=== PATIENT | female | born 1980 | race Caucasian/White ===

== ENCOUNTER 2017-12-21 09:51 | Emergency (ER) | payer MEDICARE, OTHER, MEDICAID, SELFPAY ==
[2017-12-21 10:01] VITALS: BP 113/73; PULSE 65; RESP 16; O2SAT 100; BMI 22.3
[2017-12-21 10:02] VITALS: BP 116/76; PULSE 60; RESP 18; O2SAT 98
--- NOTE | 2017-12-21 10:27 | DI.CT.S_ITS ---
PROCEDURE: CT HEAD/BRAIN WO CON INDICATIONS: recurrent episodes of syncope TECHNIQUE: Noncontrast 4.5 mm thick angled axial sections acquired from the foramen magnum to the vertex, with coronal and sagittal reformats. For radiation dose reduction, the following was used: automated exposure control, adjustment of mA and/or kV according to patient size. COMPARISON: None. FINDINGS: Image quality: Limited by beam hardening artifact related to metallic appearing implants. CSF spaces: Basal cisterns are patent. No extra-axial fluid collections. Ventricles are normal in size and shape. Brain: No midline shift. No intracranial masses or hemorrhage. Boone-white matter interface is normal. Skull and face: Calvarium and visualized facial bones are intact, without suspicious lesions. Partially calcified soft tissue density material noted in the left external auditory canal. Sinuses: Visualized sinuses and mastoids are clear. IMPRESSION: 1. No acute intracranial disease process. 2. Partially calcified soft tissue density lesion in the left external auditory canal which may represent inspissated wax versus neoplastic process. Recommend correlation with direct visualization. Dictated by: Merry Howard MD, PhD on 12/21/2017 at 10:36 Approved by: Merry Howard MD, PhD on 12/21/2017 at 10:39
[2017-12-21 10:29] LABS: Add Manual Diff / Slide Review NO; Basophils Percent Auto 0.9 % (0-2); Eosinophils Percent Auto 2.8 % (2-4); Hematocrit 40.8 % (36-46); Hemoglobin 14.1 g/dL (12.0-16.0); Mean Corpuscular HGB Conc 34.6 % (30-36); Mean Corpuscular Hemoglobin 34.3 PG (26-34); Mean Corpuscular Volume 99.2 fL (80-100); Monocytes Percent Auto 5.9 % (3-14); Neutrophils Absolute Auto 2000 /uL (3000-5900); Neutrophils Percent Auto 59.4 % (50-75); Platelet Count 223 X10^3/uL (150-400); Red Blood Cell Count 4.11 X10^6/uL (4.0-5.2); Red Cell Distribution Width 12.6 % (11.6-14.8); White Blood Cell Count 3.3 X10^3/uL (4.5-11.0)
[2017-12-21] MEDS: SODIUM CHLORIDE 0.9% 1,000 ML 1000 ML IV (10:29)
[2017-12-21 10:34] LABS: Alanine Aminotransferase 36 IU/L (9-52); Albumin 4.1 g/dL (3.5-5.0); Albumin Globulin Ratio 1.5 (1.0-2.8); Alkaline Phosphatase 54 U/L (38-126); Aspartate Aminotransferase 30 IU/L (14-36); BUN Creatinine Ratio 28.6 (6-22); Bilirubin Total 0.5 mg/dL (0.2-1.3); Blood Urea Nitrogen 20 mg/dL (7-17); Calcium 8.9 mg/dL (8.4-10.2); Carbon Dioxide 33 mmol/L (22-32); Chloride 99 mmol/L (98-107); Estimated Glomerular Filt Rate > 60.0 mL/min (>60); Globulin 2.8 g/dL (1.7-4.1); Glucose 110 mg/dL (70-100); HEMOLYSIS < 15 (0-50); Sodium 139 mmol/L (137-145); Total Protein 6.9 g/dL (6.3-8.2)
[2017-12-21 10:36] VITALS: BP 117/78; PULSE 62; RESP 14; O2SAT 98
--- NOTE | 2017-12-21 11:15 | ED_ITS ---
HPI - Syncope General Chief Complaint: Syncope Stated Complaint: 'PASSING OUT AGAIN' Time Seen by Provider: 12/21/17 10:03 Source: patient and family Mode of arrival: wheelchair Limitations: no limitations History of Present Illness HPI narrative: The patient is a 37-year-old Down's female who presents after syncopal episode. She had 2 syncopal episodes this morning there 5 min apart. She was going to the restroom when she got very dizzy lightheaded and diaphoretic. Mom says that she passed out briefly for just a couple of seconds. She was lowered to the ground. She sat up 5 min later passed out again. She has had syncopal episodes in the past her last 1 was in October 2016. Previously she had a syncopal episode in April and now has a loop recorder implanted. Patient is awake and alert and says that she is hungry. She has no other complaints no longer diaphoretic. MD complaint: almost passed out Related Data Home Medications Medication Instructions Recorded Confirmed coQ10 (liposomal ubiquinol) 10 ml PO DAILY #0 10/23/16 12/21/17 levothyroxine [Synthroid] 0.05 mg PO QDAY #0 10/23/16 12/21/17 montelukast [Singulair] 10 mg PO BEDTIME #0 10/23/16 12/21/17 multivitamin 1 tab PO QDAY #0 10/23/16 12/21/17 omega 2-xuz-yyv-fish oil [Fish Oil] 1 cap PO BEDTIME #0 10/23/16 12/21/17 ranitidine HCl 1 tab PO BEDTIME #0 10/23/16 12/21/17 Equate/Allergy 1 tab PO DAILY 12/21/17 12/21/17 L-Carnitine 1 tab PO DAILY 12/21/17 12/21/17 Potassium 99mg/Mag Cit 70mg 1 tab PO BEDTIME 12/21/17 12/21/17 Quercentinase 1 dose PO DAILY 12/21/17 12/21/17 aspirin 81 mg PO DAILY 12/21/17 12/21/17 epinephrine [EpiPen 2-Henry] 1 dose IM PRN PRN 12/21/17 12/21/17 ipratropium bromide 1 - 2 spray INTRANASAL DAILY 12/21/17 12/21/17 ofloxacin 1 drp OTIC (EAR) DIRECTED 12/21/17 12/21/17 red yeast rice 600 mg PO BEDTIME 12/21/17 12/21/17 Allergies Allergy/AdvReac Type Severity Reaction Status Date / Time bee venom protein (honey bee) Allergy Unknown Verified 12/21/17 10:01 [BEE VENOM PROTEIN (HONEY BEE)] Penicillins [PENICILLINS] Allergy Unknown Verified 12/21/17 10:01 Sulfa (Sulfonamide Allergy Unknown Verified 12/21/17 10:01 Antibiotics) [SULFA (SULFONAMIDE ANTIBIOTICS)] STEROIDS Allergy Unknown Uncoded 12/21/17 10:01 Review of Systems Review of Systems All systems reviewed & are unremarkable except as noted in HPI and below Constitutional Denies anorexia, Denies body ache(s), Denies chills, Reports excessive sweating (During the episode) and Denies fever(s) Eyes Denies change in vision, Denies eye discharge, Denies irritation and Denies loss of vision ENT Ears, Nose, Mouth, and Throat: Denies vertigo and Denies dizziness Cardiovascular Denies chest pain, Reports syncope, Denies irregular heart rhythm, Reports lightheadedness, Denies palpitations, Denies dyspnea, Denies dyspnea on exertion and Denies orthopnea Respiratory Denies cough, Denies dyspnea, Denies dyspnea on exertion and Denies wheezing Gastrointestinal Gastrointestinal: Denies abdominal pain, Denies change in bowel habits, Denies diarrhea, Denies nausea and Denies vomiting Musculoskeletal Denies back pain, Denies muscle weakness, Denies numbness and Denies tingling Neurologic Denies confusion, Denies vertigo, Denies dizziness, Reports syncope, Denies loss of vision, Denies numbness and Denies tingling Psychiatric Denies confusion Endocrine Reports excessive sweating (During the episode) and Denies palpitations Allergic/Immunologic Denies wheezing PFSH Medical History Atrial septal defect (Acute) Bradycardia (Acute) Congenital mitral regurgitation (Acute) Down syndrome (Acute) Surgical History History of partial hysterectomy (Acute) Social History household members: family lives independently: No Exam Initial Vital Signs Initial Vital Signs: Vital Signs Pulse Rate 65 12/21/17 10:01 Respiratory Rate 16 12/21/17 10:01 Blood Pressure 113/73 12/21/17 10:01 Pulse Oximetry 100 12/21/17 10:01 GENERAL: Down's features awake alert female no acute distress HEENT: Head atraumatic,EOMI, pupils reactive, neck is supple no JVD. Left ear has recent surgical incision noted with packing in place CARDIOVASCULAR: Regular rate and rhythm without murmurs, rubs or gallops. Vertical Scar RESPIRATORY: Breath sounds equal bilaterally, no wheezes rales or rhonchi. ABDOMEN: Soft, nontender. Normoactive bowel sounds all 4 quadrants. No guarding or rebound. EXTREMITIES: Normal range of motion, no clubbing or edema. Neurovascularly intact NEUROLOGICAL: Alert and oriented x4. 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 Course Orders Ordered: ED Orders 12/21/17 10:17 Complete Blood Count AUTO DIFF Stat Comprehensive Metabolic Panel Stat 12/21/17 10:27 CT head/brain wo con Stat 12/21/17 11:20 Urine Microscopic Stat Discontinued Medications Sodium Chloride (Normal Saline 0.9%) 1,000 mls @ 1,000 mls/hr IV BOLUS ONE Stop: 12/21/17 11:19 Last Admin: 12/21/17 10:29 Dose: 1,000 mls/hr Vital Signs - 8 hr 12/21/17 10:01 12/21/17 10:02 12/21/17 10:36 Pulse Rate 65 60 62 Respiratory Rate 16 18 14 Blood Pressure 113/73 Blood Pressure [Left Arm] 116/76 117/78 Pulse Oximetry 100 98 98 12/21/17 11:17 12/21/17 12:01 Pulse Rate 58 L 65 Respiratory Rate 14 12 Blood Pressure Blood Pressure [Left Arm] 128/107 H 105/65 Pulse Oximetry 100 100 MDM - Syncope Medical Records Attestation: I reviewed the patient's medical records. Lab Data Attestation: I reviewed the patient's lab results. Result diagrams: 12/21/17 10:17 12/21/17 10:17 Lab Results 12/21/17 12/21/17 12/21/17 Range/Units 10:17 10:17 11:20 WBC 3.3 L (4.5-11.0) X10^3/uL RBC 4.11 (4.0-5.2) X10^6/uL Hgb 14.1 (12.0-16.0) g/dL Hct 40.8 (36-46) % MCV 99.2 (80-100) fL MCH 34.3 H (26-34) PG MCHC 34.6 (30-36) % RDW 12.6 (11.6-14.8) % Plt Count 223 (150-400) X10^3/uL Neut % (Auto) 59.4 (50-75) % Lymph % (Auto) 31.0 (25-40) % Atkinson % (Auto) 5.9 (3-14) % Eos % (Auto) 2.8 (2-4) % Baso % (Auto) 0.9 (0-2) % Neut # (Auto) 2000 L (4363-0133) /uL Sodium 139 (137-145) mmol/L Potassium 4.0 (3.4-5.1) mmol/L Chloride 99 (98-107) mmol/L Carbon Dioxide 33 H (22-32) mmol/L BUN 20 H (7-17) mg/dL Creatinine 0.70 (0.52-1.04) mg/dL Estimated GFR > 60.0 (>60) mL/min BUN/Creatinine Ratio 28.6 H (6-22) Glucose 110 H (70-100) mg/dL Calcium 8.9 (8.4-10.2) mg/dL Total Bilirubin 0.5 (0.2-1.3) mg/dL AST 30 (14-36) IU/L ALT 36 (9-52) IU/L Alkaline Phosphatase 54 (38-126) U/L Total Protein 6.9 (6.3-8.2) g/dL Albumin 4.1 (3.5-5.0) g/dL Globulin 2.8 (1.7-4.1) g/dL Albumin/Globulin Ratio 1.5 (1.0-2.8) Urine RBC 1-5/hpf (0-5/HPF) Urine WBC 0-1/hpf (0-5/HPF) Triple Phos Crystals Few Urine Bacteria None seen (None) Ur Culture Indicated? Cult not indicated Micro UA Comment Not Reportable Point of Care Testing Test Results Negative Urine Dip Bedside Urine Glucose Negative Bedside Urine Bilirubin - Negative Bedside Urine Ketone - Negative Urine Specific Fenton 1.010 Bedside Urine Occult Blood +++ Bedside Urine pH 8.0 Bedside Urine Protein + 30 Bedside Urine Urobilinogen - Negative Bedside Urine Nitrite - Negative Bedside Urine Leukocytes +/- [address] scan - head: Radiologist's impression: PROCEDURE: CT HEAD/BRAIN WO CON INDICATIONS: recurrent episodes of syncope TECHNIQUE: Noncontrast 4.5 mm thick angled axial sections acquired from the foramen magnum to the vertex, with coronal and sagittal reformats. For radiation dose reduction, the following was used: automated exposure control, adjustment of mA and/or kV according to patient size. COMPARISON: None. FINDINGS: Image quality: Limited by beam hardening artifact related to metallic appearing implants. CSF spaces: Basal cisterns are patent. No extra-axial fluid collections. Ventricles are normal in size and shape. Brain: No midline shift. No intracranial masses or hemorrhage. Boone-white matter interface is normal. Skull and face: Calvarium and visualized facial bones are intact, without suspicious lesions. Partially calcified soft tissue density material noted in the left external auditory canal. Sinuses: Visualized sinuses and mastoids are clear. IMPRESSION: 1. No acute intracranial disease process. 2. Partially calcified soft tissue density lesion in the left external auditory canal which may represent inspissated wax versus neoplastic process. Recommend correlation with direct visualization. Dictated by: Merry Howard MD, PhD on 12/21/2017 at 10:36 ECG Data Attestation: I personally reviewed and interpreted this ECG as follows: Interpretation: Sinus rhythm rate 56 some artifact in noted, similar to previous EKG with right right bundle-branch block. MDM Narrative Medical decision making narrative: I have spoken with Cardiology they were unable to see her loop recorder transmission recommended I call the device portion of the clinic. I talked to the device lady. She sees a transmission from this morning but actually did not record anything so either the but it was not pushed correctly or there was not anything to records. The last recording was from November 23. Mother states that she pushed the button 3 different times. The patient had 1 episode of diarrhea when she got here. This is likely a vasovagal syndrome. Recommend she follow up with Cardiology. Discharge Plan Departure Patient Disposition: Home Clinical Impression: Vasovagal syncope Discharge Date/Time: 12/21/17 12:52 Interventions: ED Discharge Assessment Last Done: 12/21/17 12:51 Instructions: Fainting Activity Restrictions/Additional Instructions: *You have been diagnosed with fainting episode *What to do: No abnormality is recorded on the loop recorder, please follow up with Cardiology. Increase fluid intake with Gatorade or Gatorade like substance *Continue to take medications as directed *Follow up with your primary care provider in 2-3 days *Return to ER if you should have recurrent syncopal episode, chest pain, confusion or any new, worsening or concerning symptoms Prescriptions: No Action levothyroxine [Synthroid] 50 MCG tablet 0.05 mg PO QDAY Qty: 0 RF: 0 ranitidine HCl 150 MG tablet 1 tab PO BEDTIME Qty: 0 RF: 0 montelukast [Singulair] 10 MG tablet 10 mg PO BEDTIME Qty: 0 RF: 0 coQ10 (liposomal ubiquinol) 100 mg/mL Liquid 10 ml PO DAILY Qty: 0 RF: 0 omega 5-ucq-dhn-fish oil [Fish Oil] 1,000 MG capsule 1 cap PO BEDTIME Qty: 0 RF: 0 multivitamin Tablet,Chewable 1 tab PO QDAY Qty: 0 RF: 0 ofloxacin 0.3 % drops 1 drp otic (ear) DIRECTED RF: 0 epinephrine [EpiPen 2-Henry] 0.3 mg/0.3 mL auto-injector 1 dose IM PRN PRN (Reason: Allergic Reaction) RF: 0 ipratropium bromide 42 mcg (0.06 %) spray,non-aerosol 1 - 2 spray Intranasal DAILY RF: 0 aspirin 81 mg Tablet,Delayed Release (Dr/Ec) 81 mg PO DAILY RF: 0 Equate/Allergy 1 tab PO DAILY RF: 0 red yeast rice 600 mg Tablet 600 mg PO BEDTIME RF: 0 L-Carnitine 330 mg tablet 1 tab PO DAILY RF: 0 Potassium 99mg/Mag Cit 70mg 1 tab PO BEDTIME RF: 0 Quercentinase 250 mg 1 dose PO DAILY RF: 0 Referrals: Anaid Magallanes MD [Non-Staff] -
[2017-12-21 11:17] VITALS: BP 128/107; PULSE 58; RESP 14; O2SAT 100
[2017-12-21 11:28] LABS: Bacteria Urine None Seen
[2017-12-21 11:37] LABS: Culture Indicated Urine Cult Not Indicated; RBC Urine 1-5/HPF (0-5/HPF); Triple Phosphate Crystal Urine Few; WBC Urine 0-1/HPF (0-5/HPF)
[2017-12-21 12:01] VITALS: BP 105/65; PULSE 65; RESP 12; O2SAT 100
== END 2017-12-21 12:52 | disposition home or self-care (01) ==
PROVIDERS: Emergency Provider Emergency Medicine; Family Provider Registered Nurse
DX: R55 Syncope and collapse (principal)
CPT/HCPCS: 36591; 70450; 80053; 81003; 81015; 81025; 85025; 93005; 93010; 96360; 99284; 99285

== ENCOUNTER 2019-08-13 13:14 | Emergency (ER) | payer MEDICARE, MEDICAID, SELFPAY ==
[2019-08-13 13:25] VITALS: BP 141/64; PULSE 70; RESP 18; TEMP 36.7; O2SAT 100
--- NOTE | 2019-08-13 15:29 | DI.RAD.S_ITS ---
PROCEDURE: XR SHOULDER LT MIN 2V INDICATIONS: atraumatic pain TECHNIQUE: 3 views of the shoulder were acquired. COMPARISON: None. FINDINGS: Bones: No fractures or dislocations. No suspicious bony lesions. Visualized ribs appear intact. Soft tissues: No suspicious soft tissue calcifications. IMPRESSION: No visualized acute fracture or dislocation. However, if clinical concern and/or pain persist, short interval imaging followup in 7-10 days is recommended, as occult injury cannot be definitively excluded. Dictated by: Myla Acevedo M.D. on 08/13/2019 at 16:07 Approved by: Myla Acevedo M.D. on 08/13/2019 at 16:07
--- NOTE | 2019-08-13 15:29 | DI.RAD.S_ITS ---
PROCEDURE: XR ELBOW LT 2V INDICATIONS: atraumatic pain TECHNIQUE: 3 views of the elbow were acquired. COMPARISON: None. FINDINGS: Bones: There is a mild flattened appearance of the proximal radial head. No suspicious bony lesions. Soft tissues: No elbow joint effusion. No suspicious soft tissue calcifications. IMPRESSION: Mild flattened appearance of the proximal radial head. This could be related to old injury. Dictated by: Myla Acevedo M.D. on 08/13/2019 at 16:08 Approved by: Myla Acevedo M.D. on 08/13/2019 at 16:08
--- NOTE | 2019-08-13 16:51 | ED.SYNCOPE ---
HPI - Syncope <Adelina Ricketts PA-C - Last Filed: 08/13/19 23:20> General Chief Complaint: Syncope Stated Complaint: Shoulder pain in lt side numbness Time Seen by Provider: 08/13/19 16:13 Source: patient and other Mode of arrival: Ambulatory Limitations: no limitations and other History of Present Illness HPI narrative: This is a 39-year-old female with Down syndrome, history of open-heart surgery, syncope, loop monitor, who presents with her mother complaining of left shoulder pain, left elbow pain, left neck pain, and left hand tingling that began on Tuesday, and have continued throughout the weekend, she also had a syncope on tuesday. Mother reports that she is very difficult to elicit information from that she never complains about pain, so the fact that she was complaining about this is concerning. She also reports that she is due to have a pacemaker at some point, and is on a loop monitor for cardiac monitoring. She has had multiple workups for syncope in the past, was having these approximately every 2 years, they increased in frequency and then she has not had one for a year and a half until 2 days ago. Mother reports that she syncopized on Tuesday, she did not witness said however her daughter has become very used to this and sits down immediately when she starts feeling like she is going to syncopized, she reports that she heard a thud sound and came in to find her sitting on the floor with her hand against a wall saying that she felt dizzy. Mother reports that she spoke with her doctor on Tuesday regarding the shoulder and arm pain and hand tingling and they advised that if it was still there on Tuesday she should come to the emergency department for further evaluation. Related Data Home Medications Medication Instructions Recorded Confirmed coQ10 (liposomal ubiquinol) 10 ml PO DAILY #0 10/23/16 12/21/17 levothyroxine [Synthroid] 0.05 mg PO QDAY #0 10/23/16 12/21/17 montelukast [Singulair] 10 mg PO BEDTIME #0 10/23/16 12/21/17 multivitamin 1 tab PO QDAY #0 10/23/16 12/21/17 omega 3-ehh-eno-fish oil [Fish Oil] 1 cap PO BEDTIME #0 10/23/16 12/21/17 ranitidine HCl 1 tab PO BEDTIME #0 10/23/16 12/21/17 Equate/Allergy 1 tab PO DAILY 12/21/17 12/21/17 L-Carnitine 1 tab PO DAILY 12/21/17 12/21/17 Potassium 99mg/Mag Cit 70mg 1 tab PO BEDTIME 12/21/17 12/21/17 Quercentinase 1 dose PO DAILY 12/21/17 12/21/17 aspirin 81 mg PO DAILY 12/21/17 12/21/17 epinephrine [EpiPen 2-Henry] 1 dose IM PRN PRN 12/21/17 12/21/17 ipratropium bromide 1 - 2 spray INTRANASAL DAILY 12/21/17 12/21/17 ofloxacin 1 drp OTIC (EAR) DIRECTED 12/21/17 12/21/17 red yeast rice 600 mg PO BEDTIME 12/21/17 12/21/17 Allergies Allergy/AdvReac Type Severity Reaction Status Date / Time bee venom protein (honey bee) Allergy Unknown Verified 12/21/17 10:01 [BEE VENOM PROTEIN (HONEY BEE)] Penicillins [PENICILLINS] Allergy Unknown Verified 12/21/17 10:01 Sulfa (Sulfonamide Allergy Unknown Verified 12/21/17 10:01 Antibiotics) [SULFA (SULFONAMIDE ANTIBIOTICS)] STEROIDS Allergy Unknown Uncoded 12/21/17 10:01 Review of Systems <Adelina Ricketts PA-C - Last Filed: 08/13/19 23:20> Review of Systems Narrative: Review of systems was difficult to obtain, most of the review was provided by the patient's mother, as the patient has Down syndrome and she is unable to communicate well consistently GENERAL: Denies chills, fatigue, malaise, fever, sweats. HEENT: Denies sinus pain, ear pain, sore throat, difficulty swallowing, dizziness. RESPIRATORY: Denies dyspnea, cough, wheezing, hemoptysis, sputum. CARDIOVASCULAR: Denies chest pain, palpitations, orthopnea, edema, GASTROINTESTINAL: Denies nausea, vomiting, abdominal pain, diarrhea, constipation, melena. : Denies dysuria, frequency, incontinence, hematuria, urinary retention. MUSCULOSKELETAL: Positive for left shoulder and elbow pain over the last couple of days has been intermittent, some tingling in the left hand denies weakness, joint pain, or bony pain SKIN: Denies rash, skin lesions, or other NEUROLOGIC: Denies weakness, headache, numbness, change in speech, confusion, seizures, incoordination. PSYCHIATRIC: No concerning psychosocial issues. 12 point review of systems is negative except for those stated above Patient History <Adelina Ricketts PA-C - Last Filed: 08/13/19 23:20> Medical History (Updated 08/13/19 @ 19:24 by Adelina Ricketts PA-C) Atrial septal defect (Acute) Bradycardia (Acute) Congenital mitral regurgitation (Acute) Down syndrome (Acute) Surgical History (Updated 12/21/17 @ 12:26 by Claire Newman DO) History of partial hysterectomy (Acute) Social History (Updated 12/21/17 @ 12:26 by Claire Newman DO) household members: family lives independently: No Smoking Status: Never smoker Smoking Status: Never smoker alcohol intake frequency: 0-2 drinks per day Substance Use Type: does not use Exam <Adelina Ricketts PA-C - Last Filed: 08/13/19 23:20> Narrative Exam Narrative: GENERAL: 39 year old patient with Down syndrome who appears younger than stated age. Well-nourished, well-developed patient, in no apparent distress. HEAD: Atraumatic. Normocephalic. EYES: Pupils equal round and reactive. Extraocular motions intact. No scleral icterus. No injection or drainage. ENT: Nose without bleeding, purulent drainage. Throat without erythema, tonsillar hypertrophy or exudate. Airway patent. NECK: Trachea midline. Non tender CARDIOVASCULAR: Regular rate and rhythm without murmurs, gallops, or rubs, loop monitor wire in place. RESPIRATORY: Clear to auscultation. Breath sounds equal bilaterally. No wheezes, rales, or rhonchi. GASTROINTESTINAL: Abdomen soft, non-tender, nondistended. EXTREMITIES: She has some mild tenderness her left shoulder but no tenderness at the elbow upper arm or wrist, she has normal passive range of motion of the left arm without complaint of pain. No edema or joint tenderness. BACK: Nontender without deformity or crepitance. No flank tenderness. NEURO: AOx3. SKIN: No rash or erythema of visible areas Initial Vital Signs Initial Vital Signs: Vital Signs Temperature 98.1 F 08/13/19 13:25 Pulse Rate 70 08/13/19 13:25 Respiratory Rate 18 08/13/19 13:25 Blood Pressure 141/64 H 08/13/19 13:25 Pulse Oximetry 100 08/13/19 13:25 <Mirta Astorga MD - Last Filed: 08/14/19 07:36> Initial Vital Signs Initial Vital Signs: Vital Signs Temperature 98.1 F 08/13/19 13:25 Pulse Rate 70 08/13/19 13:25 Respiratory Rate 18 08/13/19 13:25 Blood Pressure 141/64 H 08/13/19 13:25 Pulse Oximetry 100 08/13/19 13:25 Course <Adelina Ricketts PA-C - Last Filed: 08/13/19 23:20> Orders Ordered: ED Orders 08/13/19 15:29 XR elbow LT 2V Stat XR shoulder LT min 2V Stat EKG-12 Lead Stat 08/13/19 17:20 Complete Blood Count AUTO DIFF Stat Comprehensive Metabolic Panel Stat Troponin & CK Cardiac Panel Stat Vital Signs Vital signs: Vital Signs - 8 hr 08/13/19 19:20 Pulse Rate 78 Respiratory Rate 15 Blood Pressure [Left Arm] 108/72 Pulse Oximetry 96 <Mirta Astorga MD - Last Filed: 08/14/19 07:36> Orders Ordered: ED Orders 08/13/19 15:29 XR elbow LT 2V Stat XR shoulder LT min 2V Stat EKG-12 Lead Stat 08/13/19 17:20 Complete Blood Count AUTO DIFF Stat Comprehensive Metabolic Panel Stat Troponin & CK Cardiac Panel Stat Vital Signs Vital signs: Vital Signs - 8 hr 08/13/19 19:20 Pulse Rate 78 Respiratory Rate 15 Blood Pressure [Left Arm] 108/72 Pulse Oximetry 96 MDM - Syncope <Adelina Ricketts PA-C - Last Filed: 08/13/19 23:20> Differential Diagnosis Differential diagnosis: Likely other (Syncope, brachial plexus injury, muscle strain) Medical Records Attestation: I reviewed the patient's medical records. Lab Data Attestation: I reviewed the patient's lab results. Result diagrams: 08/13/19 17:20 08/13/19 17:20 Labs: Lab Results 08/13/19 08/13/19 08/13/19 Range/Units 17:20 17:20 17:20 WBC 3.5 L (4.5-11.0) X10^3/uL RBC 3.86 L (4.0-5.2) X10^6/uL Hgb 13.4 (12.0-16.0) g/dL Hct 38.6 (36-46) % MCV 100.0 (80-100) fL MCH 34.7 H (26-34) PG MCHC 34.6 (30-36) % RDW 12.4 (11.6-14.8) % Plt Count 224 (150-400) X10^3/uL Neut % (Auto) 59.8 (50-75) % Lymph % (Auto) 30.9 (25-40) % [place] % (Auto) 7.2 (3-14) % Eos % (Auto) 1.4 L (2-4) % Baso % (Auto) 0.7 (0-2) % Neut # (Auto) 2200 (0231-0064) /uL Lymph # (Auto) 1200 (8821-7499) /uL [place] # (Auto) 300 (0-900) /uL Eos # (Auto) 100 (0-450) /uL Baso # (Auto) 0 (0-100) /uL Total Counted Not Reportable RBC Morphology Not Reportable Sodium 140 (137-145) mmol/L Potassium 4.0 (3.4-5.1) mmol/L Chloride 101 (98-107) mmol/L Carbon Dioxide 31 (22-32) mmol/L BUN 17 (7-17) mg/dL Creatinine 0.55 (0.52-1.04) mg/dL Estimated GFR > 60.0 (>60) mL/min BUN/Creatinine Ratio 30.9 H (6-22) Glucose 89 (70-100) mg/dL Calcium 9.3 (8.4-10.2) mg/dL Total Bilirubin 0.5 (0.2-1.3) mg/dL AST 38 H (14-36) IU/L ALT 16 (<35) IU/L Alkaline Phosphatase 86 (38-126) U/L Total Creatine Kinase 36 (30-135) U/L CK-MB (CK-2) TNP CK-MB (CK-2) Rel Index TNP Troponin I < 0.012 (0.01-0.034) ng/mL Total Protein 7.8 (6.3-8.2) g/dL Albumin 4.2 (3.5-5.0) g/dL Globulin 3.6 (1.7-4.1) g/dL Albumin/Globulin Ratio 1.2 (1.0-2.8) Imaging Data Extremity x-ray #1: Attestation: I personally reviewed and interpreted this imaging study as follows: Radiologist's Impression: [address] [address] XRay Report Signed Patient: Barbara Mancuso JMR#: [id number] : 1980Acct:[id number] Age/Sex: 39 / FDate of Service: 08/13/19 Loc: ED Accession Number: [id number] Procedure: XR shoulder LT min 2V Ordering Provider: Mirta Astorga MD PROCEDURE: XR SHOULDER LT MIN 2V INDICATIONS: atraumatic pain TECHNIQUE: 3 views of the shoulder were acquired. COMPARISON: None. FINDINGS: Bones: No fractures or dislocations. No suspicious bony lesions. Visualized ribs appear intact. Soft tissues: No suspicious soft tissue calcifications. IMPRESSION: No visualized acute fracture or dislocation. However, if clinical concern and/or pain persist, short interval imaging followup in 7-10 days is recommended, as occult injury cannot be definitively excluded. Dictated by: Myla Acevedo M.D. on 08/13/2019 at 16:07 Approved by: Myla Acevedo M.D. on 08/13/2019 at 16:07 Extremity x-ray #2: Attestation: I personally reviewed and interpreted this imaging study as follows: Radiologist's Impression: [address] [address] XRay Report Signed Patient: Barbara Mancuso JMR#: [id number] : 1980Acct:[id number] Age/Sex: 39 / FDate of Service: 08/13/19 Loc: ED Accession Number: [id number] Procedure: XR elbow LT 2V Ordering Provider: Mirta Astorga MD PROCEDURE: XR ELBOW LT 2V INDICATIONS: atraumatic pain TECHNIQUE: 3 views of the elbow were acquired. COMPARISON: None. FINDINGS: Bones: There is a mild flattened appearance of the proximal radial head. No suspicious bony lesions. Soft tissues: No elbow joint effusion. No suspicious soft tissue calcifications. IMPRESSION: Mild flattened appearance of the proximal radial head. This could be related to old injury. Dictated by: Myla Acevedo M.D. on 08/13/2019 at 16:08 Approved by: Myla Acevedo M.D. on 08/13/2019 at 16:08 ECG Data Attestation: I personally reviewed and interpreted this ECG as follows: (Sinus bradycardia, p.r. 128 QRS 146 QT 443 PRT axes -38,-53, 17 EKG was reviewed by Dr. Astorga the attending physician, EKG printout readout suggest a right bundle-branch block, left anterior fascicular block, hypertrophy, possible old CA) Prior ECG tracings: not available for review MDM Narrative Medical decision making narrative: This is a well-appearing 39 year old with Down syndrome who was brought in by her mother after she has had a few days of left shoulder pain, with left elbow pain and some tingling in her left hand. She also had a syncopal episode 2 days ago on Tuesday, however her arm complaint began on Tuesday. There was some concern for cardiac etiology, however EKG is nonspecific for acute injury or arrhythmia, and her cardiac labs were normal. She has a history of similar syncopal episodes in the past, however she has not had 1 for about a year and a half. She had only mild pain on exam that was suggestive of a possible musculoskeletal strain. Given her Down syndrome, somewhat difficult to elicit a clear picture of her history, symptoms, however she was appropriate helpful and compliant with exam. Advise patient her mother that they should be following up with her environmental protection geologist and her PCP, as it is concerning that she had a syncopal episode again after not having 1 for about a year and a half. Also advised her to rest her left arm and shoulder for a few days and minimize excessive physical activity until is feeling better. All questions were answered. <Mirta Astorga MD - Last Filed: 08/14/19 07:36> Lab Data Labs: Lab Results 08/13/19 08/13/19 08/13/19 Range/Units 17:20 17:20 17:20 WBC 3.5 L (4.5-11.0) X10^3/uL RBC 3.86 L (4.0-5.2) X10^6/uL Hgb 13.4 (12.0-16.0) g/dL Hct 38.6 (36-46) % MCV 100.0 (80-100) fL MCH 34.7 H (26-34) PG MCHC 34.6 (30-36) % RDW 12.4 (11.6-14.8) % Plt Count 224 (150-400) X10^3/uL Neut % (Auto) 59.8 (50-75) % Lymph % (Auto) 30.9 (25-40) % [place] % (Auto) 7.2 (3-14) % Eos % (Auto) 1.4 L (2-4) % Baso % (Auto) 0.7 (0-2) % Neut # (Auto) 2200 (6412-5614) /uL Lymph # (Auto) 1200 (8532-7788) /uL [place] # (Auto) 300 (0-900) /uL Eos # (Auto) 100 (0-450) /uL Baso # (Auto) 0 (0-100) /uL Total Counted Not Reportable RBC Morphology Not Reportable Sodium 140 (137-145) mmol/L Potassium 4.0 (3.4-5.1) mmol/L Chloride 101 (98-107) mmol/L Carbon Dioxide 31 (22-32) mmol/L BUN 17 (7-17) mg/dL Creatinine 0.55 (0.52-1.04) mg/dL Estimated GFR > 60.0 (>60) mL/min BUN/Creatinine Ratio 30.9 H (6-22) Glucose 89 (70-100) mg/dL Calcium 9.3 (8.4-10.2) mg/dL Total Bilirubin 0.5 (0.2-1.3) mg/dL AST 38 H (14-36) IU/L ALT 16 (<35) IU/L Alkaline Phosphatase 86 (38-126) U/L Total Creatine Kinase 36 (30-135) U/L CK-MB (CK-2) TNP CK-MB (CK-2) Rel Index TNP Troponin I < 0.012 (0.01-0.034) ng/mL Total Protein 7.8 (6.3-8.2) g/dL Albumin 4.2 (3.5-5.0) g/dL Globulin 3.6 (1.7-4.1) g/dL Albumin/Globulin Ratio 1.2 (1.0-2.8) Discharge Plan Departure Patient Disposition: Home Clinical Impression: Muscle strain of left shoulder Qualifiers: Encounter type: initial encounter Qualified Code(s): S46.912A - Strain of unspecified muscle, fascia and tendon at shoulder and upper arm level, left arm, initial encounter Syncope Qualifiers: Syncope type: unspecified Qualified Code(s): R55 - Syncope and collapse Discharge Date/Time: 08/13/19 19:20 Instructions: DI for Syncope in Adults (Fainting), DI for Arm Pain Activity Restrictions/Additional Instructions: Thank you for letting us to be part of your care today. There is no evidence of an emergent or life threatening illness at this time, but follow up with your doctor in 1-2 days is recommended nonetheless to continue to rule out serious underlying causes of your symptoms. Please call the office for an appointment. Please return to the Emergency Department for any worsening or persistent symptoms. It is possible that the shoulder and elbow pain could be due to a strain of muscles, and the tingling sensation could be due to this, or possibly some compress nerves. The x-rays today were normal, and did not show any evidence of fracture or swelling. Labs and EKG today were not suggestive of an acute heart issue, but I think it is very important that you follow-up with her environmental protection geologist, as well as her PCP given that she had a fainting episode a few days ago and she has not had this happen for a long time, as well as the fact that she has some left arm discomfort and rarely complains about pain. If she experiences any new or worsening symptoms, she should of course seek medical care. I have not prescribed any medications today, however she can take [id number] Tylenol ibuprofen if that is something she usually takes, and that may provide some relief from her pain if it is due to a muscle strain. She can also rest the arm, and limit use of it for the next few days. Prescriptions: No Action levothyroxine [Synthroid] 50 MCG tablet 0.05 mg PO QDAY Qty: 0 RF: 0 ranitidine HCl 150 MG tablet 1 tab PO BEDTIME Qty: 0 RF: 0 montelukast [Singulair] 10 MG tablet 10 mg PO BEDTIME Qty: 0 RF: 0 coQ10 (liposomal ubiquinol) 100 mg/mL Liquid 10 ml PO DAILY Qty: 0 RF: 0 omega 7-jdx-ihz-fish oil [Fish Oil] 1,000 MG capsule 1 cap PO BEDTIME Qty: 0 RF: 0 multivitamin Tablet,Chewable 1 tab PO QDAY Qty: 0 RF: 0 ofloxacin 0.3 % drops 1 drp otic (ear) DIRECTED RF: 0 epinephrine [EpiPen 2-Henry] 0.3 mg/0.3 mL auto-injector 1 dose IM PRN PRN (Reason: Allergic Reaction) RF: 0 ipratropium bromide 42 mcg (0.06 %) spray,non-aerosol 1 - 2 spray Intranasal DAILY RF: 0 aspirin 81 mg Tablet,Delayed Release (Dr/Ec) 81 mg PO DAILY RF: 0 Equate/Allergy 1 tab PO DAILY RF: 0 red yeast rice 600 mg Tablet 600 mg PO BEDTIME RF: 0 L-Carnitine 330 mg tablet 1 tab PO DAILY RF: 0 Potassium 99mg/Mag Cit 70mg 1 tab PO BEDTIME RF: 0 Quercentinase 250 mg 1 dose PO DAILY RF: 0 Referrals: Becca Cadena MD [Non-Staff] - Amy Woodruff ARNP [Non-Staff] - <Mirta Astorga MD - Last Filed: 08/14/19 07:36> Cosign ED Attending [facility] Attestation: I was immediately available in the department for consultation throughout this patient's visit. I agree with documentation as above. Mirta Astorga MD
[2019-08-13 17:37] LABS: Hematocrit 38.6 % (36-46); Hemoglobin 13.4 g/dL (12.0-16.0); Mean Corpuscular HGB Conc 34.6 % (30-36); Mean Corpuscular Hemoglobin 34.7 PG (26-34); Platelet Count 224 X10^3/uL (150-400); Red Blood Cell Count 3.86 X10^6/uL (4.0-5.2); Red Cell Distribution Width 12.4 % (11.6-14.8); White Blood Cell Count 3.5 X10^3/uL (4.5-11.0)
[2019-08-13 17:45] LABS: Alanine Aminotransferase 16 IU/L (<35); Albumin 4.2 g/dL (3.5-5.0); Albumin Globulin Ratio 1.2 (1.0-2.8); Alkaline Phosphatase 86 U/L (38-126); Aspartate Aminotransferase 38 IU/L (14-36); BUN Creatinine Ratio 30.9 (6-22); Bilirubin Total 0.5 mg/dL (0.2-1.3); Blood Urea Nitrogen 17 mg/dL (7-17); Calcium 9.3 mg/dL (8.4-10.2); Carbon Dioxide 31 mmol/L (22-32); Chloride 101 mmol/L (98-107); Creatine Kinase 36 U/L (30-135); Estimated Glomerular Filt Rate > 60.0 mL/min (>60); Globulin 3.6 g/dL (1.7-4.1); Glucose 89 mg/dL (70-100); HEMOLYSIS < 15 (0-50); Sodium 140 mmol/L (137-145); Total Protein 7.8 g/dL (6.3-8.2)
[2019-08-13 17:56] LABS: Troponin I < 0.012 ng/mL (0.01-0.034)
[2019-08-13 18:01] LABS: Add Manual Diff / Slide Review NO; Basophils Absolute Auto 0 /uL (0-100); Basophils Percent Auto 0.7 % (0-2); Eosinophils Absolute Auto 100 /uL (0-450); Eosinophils Percent Auto 1.4 % (2-4); Lymphocytes Absolute Auto 1200 /uL (1100-4500); Lymphocytes Percent Auto 30.9 % (25-40); Monocytes Absolute Auto 300 /uL (0-900); Monocytes Percent Auto 7.2 % (3-14); Neutrophils Absolute Auto 2200 /uL (1500-7000); Neutrophils Percent Auto 59.8 % (50-75)
[2019-08-13 19:20] VITALS: BP 108/72; PULSE 78; RESP 15; O2SAT 96
== END 2019-08-13 19:20 | disposition home or self-care (01) ==
PROVIDERS: Emergency Provider Student in an Organized Health Care Education/Training Program; Family Provider Registered Nurse
DX: S46.912A Strain of unspecified muscle, fascia and tendon at shoulder and upper arm level, left arm, initial encounter (principal); R55 Syncope and collapse; Q90.9 Down syndrome, unspecified; R00.1 Bradycardia, unspecified
CPT/HCPCS: 36415; 73030; 73070; 80053; 82550; 84484; 85025; 93005; 99283; 99284

== ENCOUNTER 2024-08-17 15:17 | Outpatient (RCR) | payer MEDICARE, MEDICAID, SELFPAY ==
--- NOTE | 2024-08-17 17:00 | ST.OPIE ---
Visit Care Team Role Provider Type SAMUEL Arias Attending Provider Non-Staff Family Provider Primary Care Provider Referring Provider Specialty: Naturopathy Address: [address] [place] [address], [place], [address] Email: Speech-Language Pathology Initial Evaluation MANAGER OF CORPORATE Voice Resonance Evaluation Start: 08/17/24 17:21 Freq: Status: Active Protocol: Document 08/17/24 17:23 MM (Rec: 08/17/24 17:24 MM Desktop) Voice and Resonance Assessment Session Time Visit Start Time 15:18 Visit Stop Time 16:08 Total Visit Minutes 50 Visit Information Visit Number Initial Evaluation Insurance Information [employer] HMO - no PA first [address] visits, no copay/ deductible Referral Referring Physician SAMUEL Arias Reason for Referral Chronic cough Setting Setting Outpatient Care Patient History Patient History Pt is a 44 yo female who presented to [facility] at the referral of SAMUEL Arias, for evaluation of chronic throat clearing in the setting of excessive oral secretions/mucous. Pt /c dx of Down Syndrome, hx provided primarily by pt's mom during initial evaluation. Pt /c medical hx of asthma, post nasal drip, allergies, GERD, and sleep apnea. Pt /c surgical hx of pacemaker placement ~3 years ago. Pt /c suspected POTS dx given recurrent syncopal episodes. Pt has experienced chronic cough all her life, however, cough reportedly worsened ~2 years ago /p COVID. Cough is described as wet sounding and productive with frequent expectoration of mucous and intermittent vomiting if mucous is swallowed. Pt is followed by horn player, ENT , GI, box person. Subjective Subjective Pt arrived on time to initial evaluation with her mom who accompanied her to the therapy room and was present throughout the evaluation. Pt and pt's mom were engaged, cooperative, and pleasant throughout initial evaluation. - Laryngeal Performance Findings Observations Per report: ENT findings via nasal scope revealed excess mucous/post nasal drip with no further abnormalities, GI findings via upper endoscopy revealed GERD, horn player/ box person findings revealed asthma and various allergies. Modified Barium Swallow Study (MBSS) performed several years ago which revealed functional swallow; no overt signs/ symptoms of aspiration or oropharyngeal dysphagia reported. Cough is exacerbated by environmental irritants (e.g., incense at adventism and dietary triggers like lactose). Vocal quality is at baseline, occasional gurgly voice noted prior to throat clear/cough, however, improves /p throat clear/cough; no new voice concerns reported. Pt able to expectorate mucous, has reported abdominal discomfort and emesis when excessive mucous is swallowed with abdominal relief /p emesis. Chronic cough is affecting pt's quality of life and ability to participate effectively in ADLs and iADLs given frequency of cough. Clinical observations: Wet, productive throat clear/cough observed intermittently throughout evaluation. Gurgly voice noted prior to throat clear/cough, suggestive of mucous accumulation. Cough appears to serve a physiological function related to mucous clearance. - Recommendations Treatment Recommended No Therapy Recommendations ST services are not indicated at this time for cough management. Pt's cough appears to be protective and related to excessive mucous production secondary to underlying respiratory, otolaryngological , and gastrointestinal conditions. Behavioral cough suppression therapy is not appropriate d/t the productive nature of the cough and its physiological function in this case. Recommend continued follow-up with ENT to monitor and manage excessive mucous production, GI to monitor and manage GERD, pulmonology/ box person to monitor and manage asthma and allergies. Recommend further evaluation via chest imaging (CXR) to assess for underlying pulmonary contributors. No ST tx recommended at this time as tx via behavioral cough suppression is not indicated given productive nature of cough with physiological protective function. Please re -consult ST if new concerns arise re: swallow function, voice, or cough suppression appropriateness. ST called pt' s mom on 08/22/2024 to further discuss results and recommendations, mom verbalized understanding and agreement with ST. Referrals Referrals GI,ENT,Pulmonology Voice/Resonance Other Referral Chest imaging (CXR) Patient/Caregiver Education Patient/Family Education Described results of evaluation,Family Understanding
--- NOTE | 2024-08-22 15:18 | ST.OPDS ---
Visit Care Team Role Provider Type SAMUEL Arias Attending Provider Non-Staff Family Provider Primary Care Provider Referring Provider Address: [address] [place] [address], [place], [address] services are not indicated at this time for cough management via behavioral cough suppression given productive nature of cough appearing serve a physiological function that is protective in nature. ST signing off, pt d/c from caseload. Please re-consult if new concerns arise re: swallow function, voice, or cough suppression appropriateness. For further details please see initial evaluation completed on 08/17/2024.
== END 2024-08-24 13:42 | disposition home or self-care (01) ==
LOC: SP 15:17
PROVIDERS: Family Provider Registered Nurse; PCP Registered Nurse; Referring Provider Registered Nurse; Visit Provider Registered Nurse
DX: R09.89 Other specified symptoms and signs involving the circulatory and respiratory systems (principal); Q90.9 Down syndrome, unspecified
CPT/HCPCS: 92524